=== PATIENT | male | born 1935 | race Caucasian/White ===

== ENCOUNTER 2023-04-20 12:01 | Inpatient (IN) ==
[2023-04-20] MEDS ORDERED: IOPAMIDOL 100 ML BOTTLE IV ONE (12:02)
[2023-04-20 12:56] LABS: Basophils # (Auto) 0.01 K/mcL (0.00-0.30); Basophils % (Auto) 0.1 % (0.0-2.0); Eosinophils # (Auto) 0.01 K/mcL (0.00-0.70); Eosinophils % (Auto) 0.1 % (0.0-7.0); Hematocrit 35.8 % (40.1-51.0); Hemoglobin 11.7 g/dL (13.7-17.5); Lymphocytes # (Auto) 0.43 K/mcL (1.50-4.80); Lymphocytes % (Auto) 4.4 % (15.5-49.0); Mean Cell Volume 92.7 fL (80.0-100.0); Mean Corpuscular HGB Conc 32.7 g/dL (31.0-36.0); Mean Platelet Volume 9.4 fL (8.8-12.5); Monocytes # (Auto) 0.97 K/mcL (0.10-0.90); Neutrophils % (Auto) 85.2 % (38.0-78.0); Platelet Count 223 K/mcL (140-440); RBC 3.86 M/mcL (4.63-6.08); WBC 9.7 K/mcL (4.5-11.0)
[2023-04-20 13:14] LABS: ALT/SGPT 12 U/L (<40); AST/SGOT 26 U/L (<40); Albumin 3.5 gm/dL (3.2-5.2); Albumin/Globulin Ratio 1.3 (1.0-2.3); Alkaline Phosphatase 75 U/L (39-117); Bilirubin,Total 0.5 mg/dL (0.1-1.0); Blood Urea Nitrogen 17 mg/dL (8-23); Calcium 8.6 mg/dL (8.6-10.4); Carbon Dioxide 23 mmol/L (22-30); Chloride 101 mmol/L (96-108); Globulin 2.6 gm/dL (2.2-3.7); Glomerular Filtration Rate 50; Glucose 182 mg/dL (70-105); Thyroid Stimulating Hormone 1.06 uIU/mL (0.27-5.01)
[2023-04-20 14:04] LABS: Appearance,Urine Slightly Cloudy (Clear); Bacteria,Urine 0 /hpf (0); Bilirubin,Urine Negative (Negative); Color,Urine Yellow; Culture Indicated,Urine Yes; Glucose,Urine (UA) Negative (Negative); Ketones,Urine 15 mg/dL (Negative); Leukocyte Esterase,Urine Negative /uL (Negative); Nitrate,Urine Negative (Negative); PH,Urine 5.5 (5.0-9.0); Protein,Urine 100 mg/dL (Negative); Specific Gravity,Urine 1.025 (1.000-1.035); Urine Blood Moderate ery/mcL (Negative); Urine Budding Yeast RARE /hpf; Urine RBC 72 /hpf (0-3); Urine Squamous Epithelial Cell 1 /hpf (0-4); Urine WBC 5 /hpf (0-4); Urobilinogen,Urine Normal
[2023-04-20 14:30] LABS: Creatine Kinase MB 2.2 ng/mL (<6.7)
[2023-04-20] MEDS: OSELTAMIVIR PHOSPHATE 75 MG CAPSULE PO ONE ×2 (16:00→20:17)
[2023-04-20] MEDS ORDERED: DEXTROSE 50% 50 ML VIAL IV PRN (18:07)
[2023-04-20] MEDS ORDERED: ONDANSETRON 4 MG/2 ML VIAL IV PRN (18:07)
[2023-04-20] MEDS ORDERED: DEXTROSE 31 GM ORAL.SUSP PO PRN (18:07)
[2023-04-20] MEDS: 0.9 % SODIUM CHLORIDE 1,000 ML IV SCH (20:12)
[2023-04-20] MEDS: INSULIN LISPRO 1 UNIT/0.01 ML UNIT SQ SCH (20:12)
[2023-04-20] MEDS: INSULIN LISPRO 1 UNIT/0.01 ML UNIT SQ ONE (20:12)
[2023-04-20] MEDS: ATORVASTATIN 40 MG TABLET PO SCH (20:13)
[2023-04-20] MEDS: DOCUSATE SODIUM 100 MG CAPSULE PO SCH (20:13)
[2023-04-20] MEDS: OSELTAMIVIR PHOSPHATE 75 MG CAPSULE PO SCH (20:13)
[2023-04-20] MEDS: SENNOSIDES 1 TABLET PO SCH (20:14)
[2023-04-20] MEDS: ATORVASTATIN 40 MG TABLET ONE (20:17)
[2023-04-20] MEDS: 0.9 % SODIUM CHLORIDE 10 ML SYRINGE IV SCH (20:17)
[2023-04-21] MEDS: ACETAMINOPHEN 325 MG TABLET PO PRN (00:23)
[2023-04-21] MEDS: ACETAMINOPHEN 325 MG TABLET PO ONE (02:07)
[2023-04-21 06:18] LABS: Basophils # (Auto) 0.01 K/mcL (0.00-0.30); Basophils % (Auto) 0.2 % (0.0-2.0); Eosinophils # (Auto) 0 K/mcL (0.00-0.70); Eosinophils % (Auto) 0 % (0.0-7.0); Hematocrit 33.9 % (40.1-51.0); Hemoglobin 11.1 g/dL (13.7-17.5); Lymphocytes # (Auto) 0.51 K/mcL (1.50-4.80); Lymphocytes % (Auto) 10.3 % (15.5-49.0); Mean Cell Volume 93.1 fL (80.0-100.0); Mean Corpuscular HGB Conc 32.7 g/dL (31.0-36.0); Mean Platelet Volume 9.4 fL (8.8-12.5); Monocytes # (Auto) 0.82 K/mcL (0.10-0.90); Monocytes % (Auto) 16.6 % (1.0-12.0); Neutrophils % (Auto) 72.7 % (38.0-78.0); Platelet Count 184 K/mcL (140-440); RBC 3.64 M/mcL (4.63-6.08); Red Cell Distribution Width 13.3 % (11.5-14.5)
[2023-04-21 06:24] LABS: Blood Urea Nitrogen 19 mg/dL (8-23); Carbon Dioxide 24 mmol/L (22-30); Chloride 104 mmol/L (96-108); Glomerular Filtration Rate 50; Glucose 88 mg/dL (70-105)
[2023-04-21 06:58] LABS: Estimated Average Glucose(eAG) 137 mg/dL; Hemoglobin A1C 6.4 % Hgb (4.0-6.0)
[2023-04-21] MEDS: ENOXAPARIN 40 MG/0.4 ML SYRINGE SQ SCH (09:38)
[2023-04-21] MEDS: LISINOPRIL 10 MG TABLET PO SCH (09:38)
[2023-04-21] MEDS: FUROSEMIDE 20 MG/2 ML VIAL IV SCH (11:49)
[2023-04-21] MEDS: cefTRIAXone 1 GM VIAL IV SCH (11:49)
[2023-04-21] MEDS: AZITHROMYCIN 500 MG in DEXTROSE 5% IN WATER 250 ML IV SCH (12:53)
[2023-04-22 06:40] LABS: Basophils # (Auto) 0.01 K/mcL (0.00-0.30); Basophils % (Auto) 0.1 % (0.0-2.0); Eosinophils # (Auto) 0.02 K/mcL (0.00-0.70); Eosinophils % (Auto) 0.3 % (0.0-7.0); Hematocrit 35.1 % (40.1-51.0); Hemoglobin 11.7 g/dL (13.7-17.5); Lymphocytes # (Auto) 1.06 K/mcL (1.50-4.80); Lymphocytes % (Auto) 14.1 % (15.5-49.0); Mean Cell Volume 91.4 fL (80.0-100.0); Mean Corpuscular HGB Conc 33.3 g/dL (31.0-36.0); Mean Platelet Volume 9.3 fL (8.8-12.5); Monocytes # (Auto) 0.79 K/mcL (0.10-0.90); Monocytes % (Auto) 10.5 % (1.0-12.0); Neutrophils % (Auto) 74.9 % (38.0-78.0); Platelet Count 195 K/mcL (140-440); RBC 3.84 M/mcL (4.63-6.08); Red Cell Distribution Width 13.2 % (11.5-14.5); WBC 7.5 K/mcL (4.5-11.0)
[2023-04-22 06:56] LABS: Blood Urea Nitrogen 24 mg/dL (8-23); Calcium 8.2 mg/dL (8.6-10.4); Carbon Dioxide 26 mmol/L (22-30); Chloride 102 mmol/L (96-108); Glomerular Filtration Rate 50; Glucose 90 mg/dL (70-105)
[2023-04-23 06:07] LABS: Basophils # (Auto) 0.01 K/mcL (0.00-0.30); Basophils % (Auto) 0.2 % (0.0-2.0); Eosinophils # (Auto) 0.08 K/mcL (0.00-0.70); Eosinophils % (Auto) 1.8 % (0.0-7.0); Hematocrit 36.2 % (40.1-51.0); Hemoglobin 11.9 g/dL (13.7-17.5); Lymphocytes # (Auto) 0.94 K/mcL (1.50-4.80); Lymphocytes % (Auto) 20.9 % (15.5-49.0); Mean Cell Volume 92.3 fL (80.0-100.0); Mean Corpuscular HGB Conc 32.9 g/dL (31.0-36.0); Mean Platelet Volume 9.6 fL (8.8-12.5); Monocytes # (Auto) 0.48 K/mcL (0.10-0.90); Monocytes % (Auto) 10.7 % (1.0-12.0); Neutrophils % (Auto) 66.2 % (38.0-78.0); Platelet Count 215 K/mcL (140-440); RBC 3.92 M/mcL (4.63-6.08); Red Cell Distribution Width 13.2 % (11.5-14.5); WBC 4.5 K/mcL (4.5-11.0)
[2023-04-23 06:24] LABS: Blood Urea Nitrogen 26 mg/dL (8-23); Calcium 8.3 mg/dL (8.6-10.4); Carbon Dioxide 26 mmol/L (22-30); Chloride 107 mmol/L (96-108); Glomerular Filtration Rate 61; Glucose 97 mg/dL (70-105)
== END 2023-04-23 11:21 | DRG 195 ==
LOC: MEDSUR 12:01 → ED 12:01 → MEDSUR 18:15
PROVIDERS: ADMIT Internal Medicine; ATTEND Internal Medicine